=== PATIENT | male | born 2000 | race African-American/Black ===

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

== ENCOUNTER 2019-03-14 16:56 | Emergency (ER) | payer MEDICAID, MEDICARE ==
--- OUTSIDE RECORDS SUMMARY | 2019-03-14 17:29 | XMS REPORT ---
:2000 Author Care Team Providers Name Role Phone Darlene Contreras Unavailable [phone] PROBLEMS Type Condition ICD9-CM [id number] Onset Condition SNOMED Code Notes Code Code Dates Status Problem Schizoaffective F25.0 Active 65956389 disorder, bipolar type Problem Encounter for Z13.89 Active 971182908 screening for other disorder Problem Paranoid F20.0 Active 75995943 schizophrenia Problem Cannabis abuse F12.10 Active 51382028 Problem Learning F81.9 Active 6643062 disability ALLERGIES Allergen (clinical Drug/Non Drug Reaction Allergy Type Onset Date Status drug ingredient) Allergy documented on EMR seasonal allergies hives Drug Allergy Active Amoxicillin Amoxicillin([facility] anaphylaxis Drug Allergy Active Code:[address]-81) ENCOUNTERS from 2000 to 2019-03-06 Encounter Location Date Provider Diagnosis [address] Jul, Darlene Johnhéctor Kessler Paranoid [place], [place] schizophrenia F20.0 [id number] and Learning disability F81.9 IMMUNIZATIONS No Information SOCIAL HISTORY Sex Assigned At : Social History Observation Description Sex Assigned At Unknown REASON FOR REFERRAL No Information VITAL SIGNS Weight 169.2 lbs Jul, Heart Rate 18 /min Jul, Oximetry 96 Jul, Blood pressure systolic 114 mm Hg Jul, Blood pressure diastolic 72 mm Hg Jul, MEDICATIONS Medication SIG (Take, Route, Frequency, Start Date End Date Status Duration) [place] Carbonate 150 MG 3 capsule Orally twice a day Jan, Unknown for 30 days Invega Sustenna 117 0.75 ml Intramuscular every Unknown MG/0.75ML 28 days due 09/17/18 for 28 Days PROCEDURES Procedure Date Ordered Result Body Site INJ NADEEN LOO 2018-07-16 N/A RESULTS No Results REASON FOR VISIT psychiatric updated assessment MEDICAL (GENERAL) HISTORY Type Description Date Surgical History No know Surgical history Hospitalization History Multiple psychiatric hospitalizations Goals Section No Information Health Concerns No Information MEDICAL EQUIPMENT No Information MENTAL STATUS No Information FUNCTIONAL STATUS No Information ASSESSMENTS Encounter Date Diagnosis Notes Jul, Learning disability (ICD-10 - F81.9) Jul, Paranoid schizophrenia (ICD-10 - F20.0) PLAN OF TREATMENT Next Appt Details 1 Week, 4 Weeks Reason:[id number],A31-MM Follow Up:1 Week, 4 [id number],A31-MM Insurance Providers Payer Name Payer Address Payer Insured Patient Coverage Coverage Phone Name Relationship to Start Date End Date Insured [employer] ID [address] [address] [phone] MELLY HARRIS self [employer] [address] [facility] [id number] Medicaid [place] [id number] [phone] MELLY HARRIS self SSI [facility] [id number] Wellcare ID [address] [address] [phone] MELLY HARRIS self [employer] [address] [facility] [phone] Well[employer] ID [address] [address] [phone] MELLY HARRIS self [employer] Claims [address] [facility] [id number]
--- OUTSIDE RECORDS SUMMARY | 2019-03-14 17:29 | XMS REPORT ---
:2000 Author Care Team Providers Name Role Phone Darlene Contreras Unavailable [phone] PROBLEMS Type Condition ICD9-CM [id number] Onset Condition SNOMED Code Notes Code Code Dates Status Problem Schizoaffective F25.0 Active 72996808 disorder, bipolar type Problem Encounter for Z13.89 Active 497385663 screening for other disorder Problem Paranoid F20.0 Active 86557815 schizophrenia Problem Cannabis abuse F12.10 Active 00294441 Problem Learning F81.9 Active 1093915 disability ALLERGIES Allergen (clinical Drug/Non Drug Reaction Allergy Type Onset Date Status drug ingredient) Allergy documented on EMR seasonal allergies hives Drug Allergy Active Amoxicillin Amoxicillin([facility] anaphylaxis Drug Allergy Active Code:[address]-96) ENCOUNTERS from 2000 to 2019-01-19 Encounter Location Date Provider Diagnosis [address] Jul, Darlene Kessler [place], [place] [id number] IMMUNIZATIONS No Information SOCIAL HISTORY Sex Assigned At : Social History Observation Description Sex Assigned At Unknown REASON FOR REFERRAL No Information VITAL SIGNS No information MEDICATIONS Medication SIG (Take, Route, Frequency, Start Date End Date Status Duration) [place] Carbonate 150 MG 3 capsule Orally twice a day Jan, Unknown for 30 days Invega Sustenna 117 0.75 ml Intramuscular every Unknown MG/0.75ML 28 days due 09/17/18 for 28 Days PROCEDURES No Information RESULTS No Results REASON FOR VISIT urine toxicology MEDICAL (GENERAL) HISTORY Type Description Date Surgical History No know Surgical history Hospitalization History Multiple psychiatric hospitalizations Goals Section No Information Health Concerns No Information MEDICAL EQUIPMENT No Information MENTAL STATUS No Information FUNCTIONAL STATUS No Information ASSESSMENTS No Information PLAN OF TREATMENT No Information Insurance Providers Payer Name Payer Payer Insured Patient Coverage Coverage End Address Phone Name Relationship to Start Date Date Insured Medicaid [place] [address] [phone] MELLY HARRIS SSI [id number] [facility] [id number] [facility] [address] [address] [phone] MELLY HARRIS [facility] Medical [address] Claims [facility] [phone]
[2019-03-14] MEDS ORDERED: Ciproflox/Dexameth OTIC.SUSP* 7.5 ML BTL LEFT EAR ONE (17:54)
--- NOTE | 2019-03-14 17:54 | ED ---
Throat Pain/Nasal Congestion - HPI Summary HPI Summary: 18-year-old male presents with ear pain for the past week. He states that he's had a decrease in hearing. Denies any history of ear infections. No sinus congestion. No fevers. No cough. no headache. no chest pain or SOB. he has no medical conditions. denies getting anything into his ear. no sore throat. - History of Current Complaint Chief Complaint: EDEarPain Time Seen by Provider: 03/14/19 17:37 - Allergies/Home Medications Allergies/Adverse Reactions: Allergies Allergy/AdvReac Type Severity Reaction Status Date / Time MS Amoxicillin [Amoxicillin] Allergy Unknown Hives Verified 03/14/19 17:02 PMH/Surg Hx/FS Hx/Imm Hx Endocrine/Hematology History: Denies: Hx Anticoagulant Therapy Respiratory History: Denies: Hx Asthma Sensory History: Reports: Hx Vision Problem - Reports difficulty "focusing" Opthamlomology History: Reports: Hx Vision Problem - Reports difficulty "focusing" Psychiatric History: Reports: Hx Anxiety, Hx Inpatient Treatment, Hx Community Mental Health Tx, Hx Schizophrenia, Other Psychiatric Issues/Disorders - Psychosis NOS Denies: Hx Eating Disorder, Hx of Violent Episodes Against Others Infectious Disease History: No Infectious Disease History: Denies: History Other Infectious Disease, Traveled Outside the [place] in Last 30 Days - Family History Known Family History: Negative: Cardiac Disease, Hypertension, Diabetes Family History: Pt does not speak in exam - unobtainable - Social History Alcohol Use: None Alcohol Amount: not cooperative Substance Use Type: Reports: None Substance Use Comment - Amount & Last Used: nothing in the past 2 months Smoking Status (MU): Never Smoked Tobacco Have You Smoked in the Last Year: No Review of Systems Negative: Fever Positive: Ear Ache Negative: Chest Pain Negative: Shortness Of Breath All Other Systems Reviewed And Are Negative: Yes Physical Exam Triage Information Reviewed: Yes Vital Signs On Initial Exam: Initial Vitals Temp Pulse Resp BP Pulse Ox 98.9 F 74 18 102/62 100 03/14/19 16:59 03/14/19 16:59 03/14/19 16:59 03/14/19 16:59 03/14/19 16:59 Vital Signs Reviewed: Yes Appearance: Positive: Well-Appearing Skin: Positive: Warm, Dry Head/Face: Positive: Normal Head/Face Inspection Eyes: Positive: Normal, EOMI, KAYKAY, Conjunctiva Clear ENT: Positive: Pharynx normal, Other - left ear canal edematous and erythematous. Negative: TM bulging, TM red Respiratory/Lung Sounds: Positive: Clear to Auscultation, Breath Sounds Present Cardiovascular: Positive: Normal, RRR Musculoskeletal: Positive: Normal Neurological: Positive: Normal Psychiatric: Positive: Normal Procedures - Sedation Patient Received Moderate/Deep Sedation with Procedure: No Diagnostics - Vital Signs Vital Signs Temp Pulse Resp BP Pulse Ox 03/14/19 16:59 98.9 F 74 18 102/62 100 - Laboratory Lab Statement: Any lab studies that have been ordered have been reviewed, and results considered in the medical decision making process. EENT Course/Dx - Course Course Of Treatment: 18-year-old male presents with ear pain for the past week. He states that he's had a decrease in hearing. Denies any history of ear infections. No sinus congestion. No fevers. No cough. no headache. no chest pain or SOB. On exam left ear canal edematous and erythematous. Pain with manipulation of tragus. We'll treat with Ciprodex for otitis externa. Told to est care with Primary. Patient understands and agrees the plan. - Differential Diagnoses Differential Diagnoses: Otitis Externa, Otitis Media, URI/Bronchitis - Diagnoses Provider Diagnoses: Otitis externa Discharge ED - Sign-Out/Discharge Documenting (check all that apply): Patient Departure - Discharge Plan Condition: Good Disposition: HOME Patient Education Materials: Otitis Externa (ED) Referrals: [facility] [place] [facility] REFERRAL [Outside] Additional Instructions: Use 4 drops twice a day for 7 days Take Tylenol or ibuprofen for pain every 6 hours as needed establish care with primary Return to ED if develop any new or worsening symptoms - Billing Disposition and Condition Condition: GOOD Disposition: Home - Attestation Statements Provider Attestation: I was available for consultation for this patient. I did not evaluate the patient, or participate in any medical decision making or disposition decisions unless I am specifically named in the chart as having consulted on the patient. If I have consulted on the patient, please see my own ED note on the patient encounter. Rosie Ochoa MD
[2019-03-14 18:18] VITALS: BP 114/73
== END 2019-03-14 18:15 | disposition home or self-care (01) ==
LOC: ED 16:56
DX: H60.90 Unspecified otitis externa, unspecified ear (principal); H92.09 Otalgia, unspecified ear
CPT/HCPCS: 99281; A9270-GY

== ENCOUNTER 2021-05-29 10:18 | Inpatient (IN) ==
[2021-05-29] MEDS ORDERED: Tetan/Diph/Pertus SYR(Tdap) 0.5 ML SYR(BOOSTRIX) use SYR contains LATEX IM ONE (10:37)
[2021-05-29] MEDS ORDERED: Paliperidone SUSTENNA 234 MG/1.5 ML IM ONE ×2 (13:36→15:00)
[2021-05-29] MEDS ORDERED: Al Hydrox/Mg Hydrox/Simet LIQ 30 ML UDC PO PRN (14:08)
[2021-05-29 14:15] LABS: ABS Eosinophils 0.1 10^3/ul (0-0.6); ABS Lymphocytes 1.8 10^3/ul (1.0-4.8); ABS Monocytes 0.6 10^3/ul (0-0.8); ABS Neutrophils 5.2 10^3/ul (1.5-7.7); Eosinophil % 1.4 %; Hematocrit 39 % (42-52); Hemoglobin 12.6 g/dL (14.0-18.0); Lymphocyte % 23.5 %; Mean Corpuscular HGB Conc 33 g/dL (31-36); Mean Corpuscular Hemoglobin 27 pg (27-31); Mean Corpuscular Volume 84 fL (80-94); Mean Platelet Volume 7.6 fL (7.4-10.4); Nucleated Red Blood Cells % 0.1; Platelet Count 239 10^3/uL (150-450); Red Blood Count 4.62 10^6 /uL (4.18-5.48); Red Cell Distribution Width 14 % (10-15); White Blood Count 7.8 10^3/uL (3.5-10.8)
[2021-05-29] MEDS ORDERED: Nicotine GUM 4MG FRUIT FLAVOR PO ONE (14:19)
[2021-05-29 14:43] LABS: Urine Bacteria Absent (Absent); Urine Red Blood Cell 2+(6-10/hpf) (Absent); Urine Sperm Present (Absent); Urine White Blood Cell Trace(0-5/hpf) (Absent)
[2021-05-29 14:55] LABS: Urine Appearance Cloudy; Urine Bilirubin Negative (Negative); Urine Blood Negative (Negative); Urine Color Amber; Urine Glucose Negative (Negative); Urine Ketones Trace (Negative); Urine Nitrite Negative (Negative); Urine Protein 1+(30 mg/dL) (Negative); Urine Specific Gravity 1.032 (1.002-1.030); Urine Squamous Epithelial Cell Present (Absent); Urine Urobilinogen Negative (Negative)
[2021-05-29 14:56] LABS: ALT 15 U/L (7-52); AST 20 U/L (13-39); Albumin 4.3 g/dL (3.2-5.2); Albumin/Globulin Ratio 1.7 (1-3); Alkaline Phosphatase 65 U/L (35-149); Anion Gap 8 mmol/L (2-11); Blood Urea Nitrogen 14 mg/dL (6-24); CO2 Carbon Dioxide 26 mmol/L (22-32); Calcium 9.6 mg/dL (8.6-10.3); Chloride 104 mmol/L (101-111); Globulin 2.6 g/dL (2-4); Glucose 98 mg/dL (70-100); Sodium 138 mmol/L (135-145); Total Protein 6.9 g/dL (6.4-8.9); eGFR CKD-EPI 132.7 (>60)
[2021-05-29 14:58] LABS: Urine Benzodiazepine Screen None Detected (None Detect); Urine Cannabinoids Screen Presumptive Positive (None Detect); Urine Opiates Screen None Detected (None Detect)
[2021-05-29 15:12] LABS: TSH Ultra Thyroid Stim Horm 0.29 mcIU/mL (0.34-5.60)
[2021-05-29 15:19] LABS: Acetaminophen < 15 mcg/mL; Alcohol, S < 13 mg/dL (<13); Salicylate < 2.50 mg/dL (<30)
[2021-05-29 16:18] LABS: Free T4 1.12 ng/dL (0.61-1.12)
[2021-05-30] MEDS: Nicotine GUM 4MG FRUIT FLAVOR PO PRN ×3 (15:56→20:42)
[2021-05-31] MEDS: Nicotine GUM 4MG FRUIT FLAVOR PO PRN ×4 (07:49→19:46)
[2021-05-31] MEDS: Nicotine PATCH 21 MG/24 HR PATCH TRANSDERM SCH (07:57)
[2021-06-01] MEDS: Nicotine GUM 4MG FRUIT FLAVOR PO PRN ×2 (07:28→19:49)
[2021-06-01] MEDS: Nicotine PATCH 21 MG/24 HR PATCH TRANSDERM SCH (07:28)
[2021-06-02] MEDS: Nicotine PATCH 21 MG/24 HR PATCH TRANSDERM SCH (07:45)
[2021-06-02] MEDS: Nicotine GUM 4MG FRUIT FLAVOR PO PRN ×2 (09:38→17:09)
[2021-06-02] MEDS: Nicotine Lozenge mini 4 MG LOZNG.MINI MT PRN (10:54)
[2021-06-03] MEDS: Nicotine GUM 4MG FRUIT FLAVOR PO PRN ×3 (07:06→19:05)
[2021-06-03] MEDS: Nicotine PATCH 21 MG/24 HR PATCH TRANSDERM SCH (07:07)
[2021-06-04] MEDS: Nicotine GUM 4MG FRUIT FLAVOR PO PRN ×5 (04:55→22:53)
[2021-06-04] MEDS: Nicotine PATCH 21 MG/24 HR PATCH TRANSDERM SCH (08:29)
[2021-06-04] MEDS ORDERED: Paliperidone SUSTENNA 156 MG/1 ML IM ONE ×2 (09:00→10:00)
[2021-06-04] MEDS: Nicotine Lozenge mini 4 MG LOZNG.MINI MT PRN (18:30)
[2021-06-05] MEDS: Nicotine GUM 4MG FRUIT FLAVOR PO PRN ×3 (06:40→20:15)
[2021-06-05] MEDS: Nicotine PATCH 21 MG/24 HR PATCH TRANSDERM SCH (09:54)
[2021-06-06] MEDS: Nicotine PATCH 21 MG/24 HR PATCH TRANSDERM SCH (07:33)
[2021-06-06] MEDS: Nicotine GUM 4MG FRUIT FLAVOR PO PRN ×3 (15:18→19:53)
[2021-06-07] MEDS: Nicotine GUM 4MG FRUIT FLAVOR PO PRN ×5 (05:17→20:31)
[2021-06-07] MEDS: Nicotine PATCH 21 MG/24 HR PATCH TRANSDERM SCH (08:25)
[2021-06-08] MEDS: Nicotine PATCH 21 MG/24 HR PATCH TRANSDERM SCH ×2 (10:03→11:20)
[2021-06-09] MEDS: Nicotine PATCH 21 MG/24 HR PATCH TRANSDERM SCH (13:30)
[2021-06-10] MEDS: Nicotine PATCH 21 MG/24 HR PATCH TRANSDERM SCH (10:54)
[2021-06-10] MEDS: Nicotine GUM 4MG FRUIT FLAVOR PO PRN (22:20)
[2021-06-11] MEDS: Nicotine PATCH 21 MG/24 HR PATCH TRANSDERM SCH (07:58)
[2021-06-11] MEDS: Nicotine GUM 4MG FRUIT FLAVOR PO PRN ×3 (08:15→19:57)
[2021-06-12] MEDS: Nicotine PATCH 21 MG/24 HR PATCH TRANSDERM SCH (07:23)
[2021-06-13] MEDS: Nicotine PATCH 21 MG/24 HR PATCH TRANSDERM SCH (09:38)
[2021-06-13] MEDS: Nicotine GUM 4MG FRUIT FLAVOR PO PRN ×4 (09:39→20:15)
[2021-06-14] MEDS: Nicotine PATCH 21 MG/24 HR PATCH TRANSDERM SCH (07:42)
[2021-06-14] MEDS: Nicotine GUM 4MG FRUIT FLAVOR PO PRN ×3 (08:35→19:04)
[2021-06-15] MEDS: Nicotine PATCH 21 MG/24 HR PATCH TRANSDERM SCH (06:32)
[2021-06-15] MEDS: Nicotine GUM 4MG FRUIT FLAVOR PO PRN ×2 (06:32→20:34)
[2021-06-16] MEDS: Nicotine PATCH 21 MG/24 HR PATCH TRANSDERM SCH (07:55)
[2021-06-16] MEDS: Nicotine GUM 4MG FRUIT FLAVOR PO PRN ×3 (11:50→20:57)
[2021-06-17] MEDS: Nicotine GUM 4MG FRUIT FLAVOR PO PRN ×3 (08:49→15:56)
[2021-06-17] MEDS: Nicotine PATCH 21 MG/24 HR PATCH TRANSDERM SCH (08:50)
[2021-06-18] MEDS: Nicotine GUM 4MG FRUIT FLAVOR PO PRN ×3 (08:25→22:13)
[2021-06-18] MEDS: Nicotine PATCH 21 MG/24 HR PATCH TRANSDERM SCH (08:25)
[2021-06-18] MEDS: Albuterol HFA INHALER 8 gm MDI INH PRN ×2 (18:09→21:35)
[2021-06-19] MEDS: Nicotine PATCH 21 MG/24 HR PATCH TRANSDERM SCH (07:57)
[2021-06-19 08:10] VITALS: BP 120/67
[2021-06-19] MEDS: Albuterol HFA INHALER 8 gm MDI INH PRN ×2 (09:00→20:32)
[2021-06-19] MEDS: Nicotine GUM 4MG FRUIT FLAVOR PO PRN ×2 (10:34→23:25)
[2021-06-19] MEDS ORDERED: diPHENhydraMINE IV 50 MG/ML 1 ml VIAL (BENADRYL) ONE (17:50)
[2021-06-19] MEDS ORDERED: chlorproMAZINE 25 MG/ML 2 ML (50 MG) ONE (17:50)
[2021-06-19] MEDS: guaiFENesin 100 mg/5 ml LIQ unit dose cup PO PRN (22:44)
[2021-06-20] MEDS: guaiFENesin 100 mg/5 ml LIQ unit dose cup PO PRN (08:00)
[2021-06-20] MEDS: Nicotine PATCH 21 MG/24 HR PATCH TRANSDERM SCH ×2 (09:49→12:09)
== END 2021-06-20 15:28 | disposition home or self-care (01) | DRG 750 ==
LOC: ED 10:18 → EDHOLD 14:17 → BSU 14:41
PROVIDERS: ADMIT Psychiatry & Neurology Psychiatry; ATTEND Psychiatry & Neurology Psychiatry